=== PATIENT | male | born 1960 | race Caucasian/White ===

== ENCOUNTER 2016-10-24 15:40 | Inpatient (IN) | payer MEDICAID, OTHER ==
[~2016-10-24] VITALS: Ht 188 cm; Wt 101.6 kg
[~2016-10-24 15:40] MED LIST: ASPI-1093 PO; CLON1 PO; GABA-531 PO; LISI-662 PO; METF500T4 PO; MEXI150 PO; NAPR-58 PO; NIAC500T76 PO; OMEP20 PO; SERT100T12 PO; SIMV-261 PO; SITA100 PO; SOTA80 PO
[2016-10-24] MEDS ORDERED: TRAZ-144 PO (15:49)
[2016-10-24 16:10] LABS: BASOPHILS # (AUTO) 0.06 K/uL (0.00-0.20); BASOPHILS % (AUTO) 0.7 % (0.0-2.0); EOSINOPHILS # (AUTO) 0.33 K/uL (0.00-0.70); EOSINOPHILS % (AUTO) 3.91 % (1.0-6.0); HEMATOCRIT 44.5 % (41-53); HEMOGLOBIN 14.5 g/dL (13.5-17.5); LYMPHOCYTES # (AUTO) 2.2 K/uL (1.0-4.8); LYMPHOCYTES % (AUTO) 25.6 % (22.0-44.0); MEAN CORPUSCULAR HEMOGLOBIN 28.5 pg (26.0-34.0); MEAN CORPUSCULAR HGB CONC 32.5 G/dL (31.0-37.0); MEAN CORPUSCULAR VOLUME 88 fL (80-100); MONOCYTES # (AUTO) 0.3 K/uL (0.1-1.0); MONOCYTES % (AUTO) 4.1 % (2.0-9.0); NEUTROPHILS # (AUTO) 5.5 K/uL (1.8-7.7); NEUTROPHILS % (AUTO) 65.7 % (40.0-70.0); PLATELET COUNT (AUTO) 200 K/uL (150-450); RED BLOOD CELL COUNT(AUTO) 5.07 MIL/uL (4.50-5.90); RED CELL DISTRIBUTION WIDTH 13.5 % (11.5-14.5); WHITE BLOOD COUNT (AUTO) 8.4 K/uL (4.5-11.0)
[2016-10-24 16:20] LABS: ANION GAP 10 mmol/L (8-16); CARBON DIOXIDE 25 mmol/L (22-29); CHLORIDE 98 mmol/L (98-107); CREATININE 0.66 mg/dL (0.60-1.30); GLOMERULAR FILTR. RATE CALC > 60 mL/min (>60); POTASSIUM 4.4 mmol/L (3.5-5.1); SODIUM SERUM 133 mmol/L (136-145); UREA NITROGEN, BLOOD 12 mg/dL (7-18)
[2016-10-24 16:26] LABS: ALANINE AMINOTRANSFERASE 70 U/L (12-78); ALBUMIN 3.7 g/dL (3.4-5.0); ASPARTATE AMINOTRANSFERASE 37 U/L (15-37); BILIRUBIN,TOTAL 0.3 mg/dL (0.1-1.0)
[2016-10-24] MEDS ORDERED: ZOLPIDEM TARTRATE 10 MG TABLET PO PRN (19:45)
[2016-10-24] MEDS ORDERED: HALOPERIDOL 5 MG TABLET PO PRN (19:45)
[2016-10-24] MEDS ORDERED: ClonazePAM 1 MG TABLET PO PRN (19:45)
[2016-10-24] MEDS ORDERED: LORazepam 2 MG TABLET PO PRN (19:45)
[2016-10-24 20:12] LABS: CHOL/HDL RATIO 5.3 (4.2-7.3)
[2016-10-24] MEDS: TraZODone HCL 50 MG TABLET PO SCH (21:01)
[2016-10-24 21:47] VITALS: BP 125/85
[2016-10-24 23:42] LABS: GLUCOSE,POINT OF CARE 306 MG/DL (70-110)
[2016-10-25] MEDS ORDERED: GLUCAGON,HUMAN RECOMBINANT 1 MG VIAL IM PRN (07:45)
[2016-10-25 08:53] VITALS: BP 138/79
[2016-10-25] MEDS: GABAPENTIN 300 MG CAPSULE PO SCH ×4 (09:00→17:02)
[2016-10-25] MEDS: LISINOPRIL 20 MG TABLET PO SCH (09:06)
[2016-10-25] MEDS: SERTRALINE HCL 100 MG TABLET PO SCH (09:07)
[2016-10-25] MEDS: ASPIRIN 81 MG CHEWABLE TABLET PO SCH (09:07)
[2016-10-25] MEDS: MetFORMIN HCL 500 MG TABLET PO SCH ×2 (09:07→17:59)
[2016-10-25] MEDS: MEXILETINE HCL 150 MG CAPSULE PO SCH ×2 (09:08→21:08)
[2016-10-25] MEDS: OMEPRAZOLE 20 MG CAPSULE PO SCH (09:08)
[2016-10-25] MEDS: NAPROXEN 500 MG TABLET PO SCH ×2 (09:08→21:09)
[2016-10-25] MEDS: SOTALOL HCL 80 MG TABLET PO SCH (09:08)
[2016-10-25 18:27] VITALS: BP 118/80
[2016-10-25] MEDS: SIMVASTATIN 40 MG TABLET PO SCH (21:08)
[2016-10-25] MEDS: TraZODone HCL 50 MG TABLET PO SCH (21:08)
[2016-10-25] MEDS: NIACIN 250 MG PO SCH (21:09)
[2016-10-26 06:27] LABS: GLUCOSE COMMENT 1 Received Meds; GLUCOSE,POINT OF CARE 302 MG/DL (70-110)
[2016-10-26] MEDS: INSULIN ASPART 100 UNITS/ML SQ PRN ×5 (06:34→21:06)
[2016-10-26] MEDS: MetFORMIN HCL 500 MG TABLET PO SCH ×2 (07:21→16:23)
[2016-10-26 08:00] VITALS: BP 139/61
[2016-10-26] MEDS: OMEPRAZOLE 20 MG CAPSULE PO SCH (09:20)
[2016-10-26] MEDS: GABAPENTIN 300 MG CAPSULE PO SCH ×3 (09:20→16:24)
[2016-10-26] MEDS: ASPIRIN 81 MG CHEWABLE TABLET PO SCH (09:21)
[2016-10-26] MEDS: LISINOPRIL 20 MG TABLET PO SCH (09:21)
[2016-10-26] MEDS: SOTALOL HCL 80 MG TABLET PO SCH ×2 (09:22→16:23)
[2016-10-26] MEDS: NAPROXEN 500 MG TABLET PO SCH ×2 (09:23→20:16)
[2016-10-26] MEDS: MEXILETINE HCL 150 MG CAPSULE PO SCH ×2 (09:24→20:17)
[2016-10-26] MEDS: SERTRALINE HCL 100 MG TABLET PO SCH (09:24)
[2016-10-26] MEDS: TERBINAFINE HCL 1% 30 GM CREAM TP SCH ×2 (11:23→16:26)
[2016-10-26 11:42] LABS: GLUCOSE COMMENT 1 Received Meds; GLUCOSE,POINT OF CARE 375 MG/DL (70-110)
[2016-10-26 16:43] VITALS: BP 137/76
[2016-10-26 17:21] LABS: GLUCOSE,POINT OF CARE 429 MG/DL (70-110)
[2016-10-26 17:21] LABS: GLUCOSE COMMENT 1 Received Meds; GLUCOSE,POINT OF CARE 436 MG/DL (70-110)
[2016-10-26] MEDS: NIACIN 250 MG PO SCH (20:16)
[2016-10-26] MEDS: TraZODone HCL 50 MG TABLET PO SCH (20:16)
[2016-10-26] MEDS: SIMVASTATIN 40 MG TABLET PO SCH (20:16)
[2016-10-26 20:23] LABS: GLUCOSE COMMENT 1 Received Meds; GLUCOSE,POINT OF CARE 353 MG/DL (70-110)
[2016-10-27 06:22] LABS: GLUCOSE COMMENT 1 Received Meds; GLUCOSE,POINT OF CARE 294 MG/DL (70-110)
[2016-10-27] MEDS: INSULIN ASPART 100 UNITS/ML SQ PRN ×2 (06:23→11:52)
[2016-10-27 07:03] VITALS: BP 109/78
[2016-10-27] MEDS: MetFORMIN HCL 500 MG TABLET PO SCH (07:08)
[2016-10-27 08:33] VITALS: BP 123/88
[2016-10-27] MEDS ORDERED: SitaGLIPtin PHOSPHATE 100 MG TABLET PO SCH (09:00)
[2016-10-27] MEDS: OMEPRAZOLE 20 MG CAPSULE PO SCH (09:34)
[2016-10-27] MEDS: GABAPENTIN 300 MG CAPSULE PO SCH ×2 (09:34→12:15)
[2016-10-27] MEDS: LISINOPRIL 20 MG TABLET PO SCH ×2 (09:34→10:41)
[2016-10-27] MEDS: NAPROXEN 500 MG TABLET PO SCH (09:34)
[2016-10-27] MEDS: ASPIRIN 81 MG CHEWABLE TABLET PO SCH (09:34)
[2016-10-27] MEDS: MEXILETINE HCL 150 MG CAPSULE PO SCH (09:35)
[2016-10-27] MEDS: SERTRALINE HCL 100 MG TABLET PO SCH (09:36)
[2016-10-27] MEDS: TERBINAFINE HCL 1% 30 GM CREAM TP SCH (09:36)
[2016-10-27] MEDS: SOTALOL HCL 80 MG TABLET PO SCH (09:36)
[2016-10-27 11:37] LABS: GLUCOSE COMMENT 1 Received Meds; GLUCOSE,POINT OF CARE 361 MG/DL (70-110)
== END 2016-10-27 13:00 | disposition home or self-care (01) | DRG 751 ==
LOC: EMS 15:43 → AHU 21:18 → 3EI 10-25 17:04
PROVIDERS: ADMIT Psychiatry & Neurology Child & Adolescent Psychiatry; ATTEND Psychiatry & Neurology Child & Adolescent Psychiatry
DX: F33.2 Major depressive disorder, recurrent severe without psychotic features (principal); G61.0 Guillain-Barre syndrome; I42.9 Cardiomyopathy, unspecified; E11.65 Type 2 diabetes mellitus with hyperglycemia; F15.20 Other stimulant dependence, uncomplicated; R45.851 Suicidal ideations; E78.5 Hyperlipidemia, unspecified; I10 Essential (primary) hypertension; B35.3 Tinea pedis; G47.00 Insomnia, unspecified
CPT/HCPCS: 82962; 99285; G0480

== ENCOUNTER → 2018-11-18 | Outpatient (CLI) | payer OTHER ==
[~2018-11-18] VITALS: Ht 182.9 cm; Wt 112.0 kg
[~2018-11-18] MED LIST changes: +ALPR0.5T8 PO; -ASPI-1093 PO; +ASPI-1182 PO; +ATOR40TA28 PO; -CLON1 PO; +CLOP75TA3 PO; +FINA5TAB41 PO; +INSLAN SQ; +LIDOCAINE 2% 5 ML JELLY TP ONE; +LORA1TAB3 PO; +METF-960 PO; -METF500T4 PO; +NAPR-1025 PO; -NAPR-58 PO; +RIVA10 PO; +TRAZ-252 PO
[2018-11-18 08:49] VITALS: BP 132/78
== END | disposition home or self-care (01) ==
LOC: HBOWC 07:50
PROVIDERS: ATTEND Emergency Medicine
DX: E11.622 Type 2 diabetes mellitus with other skin ulcer (principal); L97.212 Non-pressure chronic ulcer of right calf with fat layer exposed; I42.9 Cardiomyopathy, unspecified; I10 Essential (primary) hypertension; E78.5 Hyperlipidemia, unspecified; G47.00 Insomnia, unspecified; B35.3 Tinea pedis; E11.65 Type 2 diabetes mellitus with hyperglycemia; E66.9 Obesity, unspecified; K21.9 Gastro-esophageal reflux disease without esophagitis; Z79.4 Long term (current) use of insulin; Z86.718 Personal history of other venous thrombosis and embolism; Z68.29 Body mass index [BMI] 29.0-29.9, adult
CPT/HCPCS: 11042

== ENCOUNTER → 2018-11-25 | Outpatient (CLI) | payer OTHER ==
[~2018-11-25] MED LIST changes: -NAPR-1025 PO; -NIAC500T76 PO; -OMEP20 PO; -SIMV-261 PO; -TRAZ-252 PO
[2018-11-25 09:14] VITALS: BP 121/69
== END | disposition home or self-care (01) ==
LOC: HBOWC 08:59
PROVIDERS: ATTEND Emergency Medicine
DX: E11.622 Type 2 diabetes mellitus with other skin ulcer (principal); L97.812 Non-pressure chronic ulcer of other part of right lower leg with fat layer exposed; E11.65 Type 2 diabetes mellitus with hyperglycemia; I10 Essential (primary) hypertension; K21.9 Gastro-esophageal reflux disease without esophagitis; I42.9 Cardiomyopathy, unspecified; E78.5 Hyperlipidemia, unspecified; E66.09 Other obesity due to excess calories; Z79.4 Long term (current) use of insulin; Z68.29 Body mass index [BMI] 29.0-29.9, adult; Z86.718 Personal history of other venous thrombosis and embolism
CPT/HCPCS: 11042

== ENCOUNTER → 2018-12-02 | Outpatient (CLI) | payer OTHER ==
[2018-12-02 08:49] VITALS: BP 108/68
== END | disposition home or self-care (01) ==
LOC: HBOWC 08:44
PROVIDERS: ATTEND Emergency Medicine
DX: E11.622 Type 2 diabetes mellitus with other skin ulcer (principal); L97.812 Non-pressure chronic ulcer of other part of right lower leg with fat layer exposed; E11.65 Type 2 diabetes mellitus with hyperglycemia; I10 Essential (primary) hypertension; K21.9 Gastro-esophageal reflux disease without esophagitis; I42.9 Cardiomyopathy, unspecified; E78.5 Hyperlipidemia, unspecified; E66.09 Other obesity due to excess calories; Z79.4 Long term (current) use of insulin; Z68.29 Body mass index [BMI] 29.0-29.9, adult; Z86.718 Personal history of other venous thrombosis and embolism
CPT/HCPCS: 11042

== ENCOUNTER → 2018-12-09 | Outpatient (CLI) | payer OTHER ==
[~2018-12-09] MED LIST changes: +LIDOCAINE 2% 5 ML JELLY ONE; -LIDOCAINE 2% 5 ML JELLY TP ONE
[2018-12-09 10:21] VITALS: BP 119/68
== END | disposition home or self-care (01) ==
LOC: HBOWC 10:10
PROVIDERS: ATTEND Emergency Medicine
DX: E11.622 Type 2 diabetes mellitus with other skin ulcer (principal); L97.812 Non-pressure chronic ulcer of other part of right lower leg with fat layer exposed; E11.65 Type 2 diabetes mellitus with hyperglycemia; I10 Essential (primary) hypertension; K21.9 Gastro-esophageal reflux disease without esophagitis; I42.9 Cardiomyopathy, unspecified; E78.5 Hyperlipidemia, unspecified; E66.09 Other obesity due to excess calories; Z79.4 Long term (current) use of insulin; Z68.29 Body mass index [BMI] 29.0-29.9, adult; Z86.718 Personal history of other venous thrombosis and embolism
CPT/HCPCS: 11042